=== PATIENT | female | born 1950 | race Caucasian/White ===

== ENCOUNTER 2016-08-09 09:42 | Outpatient (CLI) | payer MEDICARE, BC | END 2016-08-09 09:43 | disposition home or self-care (01) | DX: C82.60 Cutaneous follicle center lymphoma, unspecified site (principal); E78.2 Mixed hyperlipidemia; Z79.899 Other long term (current) drug therapy ==

== ENCOUNTER 2016-08-16 10:56 | Outpatient (CLI) | payer MEDICARE, BC | END 2016-08-16 10:57 | disposition home or self-care (01) | DX: Z12.31 Encounter for screening mammogram for malignant neoplasm of breast (principal) ==

== ENCOUNTER 2016-09-19 15:17 | Outpatient (CLI) | payer MEDICARE, BC ==
--- NOTE | 2016-09-19 16:44 | XRAY Report ---
TWO VIEW CHEST: 09/19/2016 CLINICAL INDICATION: Dry cough for three weeks. FINDINGS: Frontal and lateral view of the chest demonstrate a normal cardiac silhouette. The lungs a re clear. No effusion or pneumothorax is evident. IMPRESSION: NORMAL CHEST. JOB #: [id number] EXT JOB #:
== END 2016-09-19 15:18 | disposition home or self-care (01) ==
LOC: DI 15:17
PROVIDERS: ATTEND Internal Medicine
DX: R05 Cough (principal)
CPT/HCPCS: 71020

== ENCOUNTER 2018-01-14 09:28 | Outpatient (CLI) | payer MEDICARE, BC ==
[2018-01-14 17:51] LABS: BASOPHILS % (AUTO) 1.3 %; EOSINOPHILS # (AUTO) 0.3 10^3/uL (0.0-0.7); EOSINOPHILS % (AUTO) 7.5 %; HGB - HEMOGLOBIN 13.5 g/dL (12.0-16.0); LYMPHOCYTES # (AUTO) 1.2 10^3/uL (1.5-3.5); LYMPHOCYTES % (AUTO) 32.2 %; MEAN CORPUSCULAR HEMOGLOBIN 32.8 pg (27.0-31.0); MEAN CORPUSCULAR HGB CONC 33.6 g/dL (32.0-36.0); MEAN CORPUSCULAR VOLUME 97.5 fL (81.0-99.0); MEAN PLATELET VOLUME 8.5 fL (7.9-10.8); MONOCYTES # (AUTO) 0.4 10^3/uL (0.0-1.0); MONOCYTES % (AUTO) 10.2 %; NEUTROPHILS # (AUTO) 1.8 10^3/uL (1.5-6.6); NEUTROPHILS % (AUTO) 48.8 %; PLT - PLATELET COUNT 236 10^3/uL (130-450); RED BLOOD COUNT 4.11 10^6/uL (4.20-5.40); RED CELL DISTRIBUTION WIDTH 12.5 % (12.0-15.0); WHITE BLOOD COUNT 3.7 x10^3/uL (4.8-10.8)
[2018-01-14 18:03] LABS: ALBUMIN 3.7 g/dL (3.2-5.5); ALBUMIN/GLOBULIN RATIO 1.3 (1.0-2.2); ALKALINE PHOSPHATASE 80 IU/L (42-121); ALT ALANINE AMINOTRANSFERASE 14 IU/L (10-60); AST ASPARTATE AMINOTRANSFERASE 22 IU/L (10-42); BILIRUBIN,TOTAL 0.6 mg/dL (0.2-1.0); BUN - BLOOD UREA NITROGEN 19 mg/dL (6-20); CALCIUM 8.7 mg/dL (8.5-10.3); CARBON DIOXIDE - CO2 32 mmol/L (21-32); CHLORIDE 102 mmol/L (101-111); CHOL/HDL RATIO 3.7 (<4.4); CHOLESTEROL 181 mg/dL; CREATININE 0.6 mg/dL (0.4-1.0); GFR - MDRD 99 (>89); GLUCOSE 85 mg/dL (70-100); HDL CHOLESTEROL 49 mg/dL; LDL CHOLESTEROL,CALCULATED 123 mg/dL; LDL/HDL RATIO 2.5 (<4.4); SODIUM 140 mmol/L (135-145); TOTAL PROTEIN 6.5 g/dL (6.7-8.2); VLDL CHOLESTEROL 9 mg/dL
== END 2018-01-14 09:29 | disposition home or self-care (01) ==
LOC: LAB.F 09:28
PROVIDERS: ATTEND Internal Medicine
DX: M85.80 Other specified disorders of bone density and structure, unspecified site (principal); E78.5 Hyperlipidemia, unspecified; M19.049 Primary osteoarthritis, unspecified hand
CPT/HCPCS: 36415; 80053; 80061; 83721; 85025

== ENCOUNTER 2018-02-12 10:44 | Outpatient (CLI) | payer MEDICARE, BC ==
--- NOTE | 2018-02-13 09:30 | DEXA Report ---
Reason: POSTMENOPAUSAL Procedure Date: 02/12/2018 Accession Number: [id number] / [id number] Procedure: DEX - Dexa Spine and/or Hip CPT Code: FULL RESULT: EXAM: Dexa Spine and/or Hip DATE: 02/12/2018 11:28 AM CLINICAL HISTORY: POSTMENOPAUSAL TECHNIQUE: Dual energy x-ray absorptiometry (DXA) was performed on a [employer] System. Regions measured are the AP Spine, femoral neck, and if needed forearm. COMPARISON: None. In accordance with the International Society for Clinical Densitometry (ISCD) guidelines, data from previous exams may be reanalyzed using current recommendations and techniques. This is done to allow a more accurate basis for comparison with the current study. FINDINGS: The data for the lumbar spine is as follows: BMD (g/cm/cm) T-SCORE Z-SCORE REGION L1 1.063 -0.6 1.3 L2 1.142 -0.5 1.4 L3 1.233 0.3 2.2 L4 1.269 0.6 2.5 TOTAL 1.186 0.1 1.9 NOTE: All evaluable vertebrae are used for classification The data for the hip is as follows: BMD (g/cm/cm) T-SCORE Z-SCORE REGION Neck 0.889 -1.1 0.7 TOTAL 0.819 -1.5 0.1 IMPRESSION: THE WHO CLASSIFICATION BASED ON THE INTERNATIONAL REFERENCE STANDARD IS OSTEOPENIA. THE FRACTURE RISK IS INCREASED. RECOMMENDATION: Patients with diagnosis of osteoporosis or osteopenia should have regular bone mineral density assessment. For those eligible for Medicare, routine testing is allowed once every 2 years. Testing frequency can be increased for patients who have rapidly progressing disease or for those who are receiving medical therapy to restore bone mass. COMMENT: World Health Organization (WHO) definitions for osteoporosis and osteopenia: NORMAL BMD: T-score at -1.0 or higher, fracture risk is low OSTEOPENIA BMD: T-score between -1.0 and -2.5, fracture risk is increased. OSTEOPOROSIS BMD: T-score at -2.5 or lower, fracture risk is high. National Osteoporosis Foundation recommends: 1. Obtain adequate dietary calcium (at least 1200 mg per day) and vitamin D (400-800 international units per day). 2. Participate, as appropriate, in regular weightbearing and muscle-strengthening exercise. 3. Avoid tobacco use and reduce alcohol and caffeine intake. 4. For more detailed information see the website at www.NOF.org.
== END 2018-02-12 10:45 | disposition home or self-care (01) ==
LOC: DI 10:44
PROVIDERS: ATTEND Internal Medicine
DX: M85.88 Other specified disorders of bone density and structure, other site (principal)
CPT/HCPCS: 77080

== ENCOUNTER 2018-03-16 23:23 | Emergency (ER) | payer MEDICARE, BC ==
--- NOTE | 2018-03-16 23:52 | ED Physician Documentation ---
PD HPI CHEST PAIN - Stated complaint Stated Complaint: CP - Chief complaint Chief Complaint: Cardiac - History obtained from History obtained from: Patient - History of Present Illness Timing - onset: Today (mid/late morning) Timing - onset during: Light activity Timing - details: Intermittant Pain level now: 0 Quality: Pain Location: Left chest Radiation: Other (no radiation) Improved by: Nothing Worsened by: Other (no exacerbating factors) Associated symptoms: No: Shortness of air, Diaphoresis, Nausea, Vomiting, Feeling faint / dizzy, Palpitations Similar symptoms before: Has not had sx before Recently seen: Not recently seen - Additional information Additional information: c/o episodic left chest pain since mid/late morning today, no apparent inciting/exacerbating/ameliorating factors. Currently asymptomatic. Review of Systems Constitutional: denies: Fever, Chills, Sweats Cardiac: reports: Chest pain / pressure. denies: Palpitations, Pedal edema, Calf pain Respiratory: reports: Reviewed and negative GI: reports: Reviewed and negative Musculoskeletal: denies: Extremity swelling PD PAST MEDICAL HISTORY - Past Medical History Past Medical History: Yes Cardiovascular: None Respiratory: None Neuro: None Endocrine/Autoimmune: None GI: None LEATHER SPRAYER: None : None HEENT: Other Psych: None Musculoskeletal: None Derm: Other Other Past Medical History: SKIN CANCER TO BRIDGE OF NOSE/RADIATION.... DRY EYES SYNDROME... - Past Surgical History Past Surgical History: Yes Ortho: Rotator cuff repair, Other /LEATHER SPRAYER: Hysterectomy - Allergies Allergies/Adverse Reactions: Allergies Allergy/AdvReac Type Severity Reaction Status Date / Time nitrofurantoin AdvReac Unknown Verified 03/16/18 23:39 [From Macrobid] Penicillins AdvReac Unknown Verified 03/16/18 23:39 Sulfa (Sulfonamide AdvReac Unknown Verified 03/16/18 23:39 Antibiotics) - Social History Does the pt smoke?: No Smoking Status: Never smoker Does the pt drink ETOH?: No Does the pt have substance abuse?: No - Immunizations Immunizations are current?: Yes - POLST Patient has POLST: No PD ED PE NORMAL - Vitals Vital signs reviewed: Yes - General General: Alert and oriented X 3, No acute distress, Well developed/nourished - HEENT HEENT: Moist mucous membranes - Cardiac Cardiac: RRR, No murmur, No gallop, No rub - Respiratory Respiratory: No respiratory distress, Clear bilaterally - Abdomen Abdomen: Soft, Non tender - Derm Derm: Normal color, Warm and dry - Extremities Extremities: No edema Results - Vitals Vitals: Vital Signs - 24 hr 03/16/18 03/16/18 03/17/18 23:31 23:36 00:33 Temperature 36.5 C Heart Rate 65 69 Respiratory 17 15 Rate Blood Pressure 161/99 H 142/74 H Blood Pressure 165/80 H [Left] O2 Saturation 99 99 03/17/18 03/17/18 03/17/18 00:45 00:48 01:00 Temperature Heart Rate 50 L Respiratory 16 17 16 Rate Blood Pressure 145/88 H Blood Pressure [Left] O2 Saturation 99 03/17/18 02:16 Temperature Heart Rate 52 L Respiratory 16 Rate Blood Pressure Blood Pressure [Left] O2 Saturation 99 Oxygen O2 Source Room air - EKG (time done) No standard instances Rate: Rate (enter#) (54) Rhythm: NSR [place]: Normal Intervals: Normal [place] QRS: Normal Ischemia: Normal ST segments - Labs Labs: Laboratory Tests 03/16/18 03/16/18 03/16/18 23:36 23:36 23:36 WBC 4.7 L RBC 4.02 L Hgb 13.3 Hct 38.9 MCV 96.8 MCH 33.0 H MCHC 34.1 RDW 12.4 Plt Count 215 MPV 7.5 L Neut # (Auto) 2.0 Lymph # (Auto) 1.6 Cottle # (Auto) 0.6 Eos # (Auto) 0.4 Baso # (Auto) 0.1 Absolute Nucleated RBC 0.00 Nucleated RBC % 0.0 Sodium 140 Potassium 3.5 Chloride 105 Carbon Dioxide 30 Anion Gap 5.0 L BUN 17 Creatinine 0.6 Estimated GFR (MDRD) 99 Glucose 98 Calcium 8.7 Total Bilirubin < 0.2 L AST 22 ALT 14 Alkaline Phosphatase 96 Troponin I < 0.04 Total Protein 6.7 Albumin 3.6 Globulin 3.1 Albumin/Globulin Ratio 1.2 Lipase 33 - Rads (name of study) chest xray Radiology: Prelim report reviewed, See rad report PD MEDICAL DECISION MAKING - ED course Complexity details: reviewed results, re-evaluated patient, considered differential, d/w patient Departure - Departure Disposition: 01 Home, Self Care Clinical Impression: Chest pain Qualifiers: Chest pain type: unspecified Qualified Code(s): R07.9 - Chest pain, unspecified Condition: Good Instructions: ED Chest Pain Atypical Unkn Cause, ED Hypertension Poss Follow-Up: Nick Rodríguez MD [Provider Admit Priv/Credential] - Within 1 week
[2018-03-16 23:54] LABS: BASOPHILS # (AUTO) 0.1 10^3/uL (0.0-0.1); BASOPHILS % (AUTO) 1.1 %; EOSINOPHILS # (AUTO) 0.4 10^3/uL (0.0-0.7); EOSINOPHILS % (AUTO) 9.5 %; HGB - HEMOGLOBIN 13.3 g/dL (12.0-16.0); LYMPHOCYTES # (AUTO) 1.6 10^3/uL (1.5-3.5); LYMPHOCYTES % (AUTO) 34.5 %; MEAN CORPUSCULAR HGB CONC 34.1 g/dL (32.0-36.0); MEAN CORPUSCULAR VOLUME 96.8 fL (81.0-99.0); MEAN PLATELET VOLUME 7.5 fL (7.9-10.8); MONOCYTES # (AUTO) 0.6 10^3/uL (0.0-1.0); NEUTROPHILS % (AUTO) 41.9 %; PLT - PLATELET COUNT 215 10^3/uL (130-450); RED BLOOD COUNT 4.02 10^6/uL (4.20-5.40); RED CELL DISTRIBUTION WIDTH 12.4 % (12.0-15.0); WHITE BLOOD COUNT 4.7 x10^3/uL (4.8-10.8)
[2018-03-17 00:28] LABS: ALBUMIN 3.6 g/dL (3.2-5.5); ALBUMIN/GLOBULIN RATIO 1.2 (1.0-2.2); ALKALINE PHOSPHATASE 96 IU/L (42-121); ALT ALANINE AMINOTRANSFERASE 14 IU/L (10-60); AST ASPARTATE AMINOTRANSFERASE 22 IU/L (10-42); BILIRUBIN,TOTAL < 0.2 mg/dL (0.2-1.0); BUN - BLOOD UREA NITROGEN 17 mg/dL (6-20); CALCIUM 8.7 mg/dL (8.5-10.3); CARBON DIOXIDE - CO2 30 mmol/L (21-32); CHLORIDE 105 mmol/L (101-111); CREATININE 0.6 mg/dL (0.4-1.0); GFR - MDRD 99 (>89); GLUCOSE 98 mg/dL (70-100); LIPASE 33 U/L (22-51); SODIUM 140 mmol/L (135-145); TOTAL PROTEIN 6.7 g/dL (6.7-8.2)
--- NOTE | 2018-03-17 00:57 | XRAY Report ---
Reason: chest pain Procedure Date: 03/17/2018 Accession Number: [id number] / [id number] Procedure: XR - Chest 2 View X-Ray CPT Code: 37986 FULL RESULT: EXAM: CHEST RADIOGRAPHY EXAM DATE: 03/17/2018 12:51 AM. CLINICAL HISTORY: Chest pain. COMPARISON: CHEST 2 VIEW PA/LAT 09/19/2016 3:26 PM. TECHNIQUE: 2 views. FINDINGS: Lungs/Pleura: Trace left effusion. No focal infiltrate or pneumothorax. Mediastinum: Heart and mediastinal contours are unremarkable. Other: None. IMPRESSION: Trace left pleural effusion. RADIA
[2018-03-17 01:01] VITALS: BP 145/88
== END 2018-03-17 02:20 | disposition home or self-care (01) ==
LOC: ED 23:23
DX: R07.9 Chest pain, unspecified (principal); Z85.828 Personal history of other malignant neoplasm of skin; Z92.3 Personal history of irradiation; R94.31 Abnormal electrocardiogram [ECG] [EKG]
CPT/HCPCS: 36415; 71046; 80053; 83690; 84484; 85025; 93005; 99283; 99284

== ENCOUNTER 2019-02-01 18:41 | Day surgery (SDC) | payer MEDICARE, BC ==
--- NOTE | 2019-02-01 19:46 | XRAY Report ---
Reason: injury from horse Procedure Date: 02/01/2019 Accession Number: [id number] / [id number] Procedure: XR - Ankle 3 View RT CPT Code: FULL RESULT: EXAM: RIGHT ANKLE RADIOGRAPHY EXAM DATE: 02/01/2019 07:22 PM. CLINICAL HISTORY: Injury from horse. COMPARISON: None. TECHNIQUE: 3 views. FINDINGS: Bones: An acute oblique displaced fracture of right distal fibular diaphysis. Moderate overlying soft tissue swelling with subcutaneous lucencies/air. Joints: Normal. No effusion. No subluxations. The ankle mortise is normally aligned. Soft Tissues: Normal. No soft tissue swelling. IMPRESSION: An acute oblique displaced fracture of right distal fibular diaphysis with moderate overlying soft tissue swelling. Subcutaneous air is likely introduced from external source secondary to injury. RADIA
--- NOTE | 2019-02-01 20:41 | ED Physician Documentation ---
History of Present Illness - Stated complaint Stated Complaint: RT ANKLE INJURY - Chief complaint Chief Complaint: Ext Problem - Additonal information Additional information: This is a 68-year-old female who denies past medical history presents with right ankle pain. Patient was riding a horse today, and another horse kicked up his legs and impacted her right ankle. She slid off the horse to the ground, but did not impact anything else. She had immediate pain and swelling over the ankle. She was wearing heavy riding boots, when these removed she noticed a wound which has continued to ooze blood. She denies any weakness or numbness in the leg. Review of Systems Constitutional: denies: Fever Respiratory: denies: Dyspnea Skin: reports: Laceration (s) Musculoskeletal: reports: Extremity pain PD PAST MEDICAL HISTORY - Past Medical History Cardiovascular: None Respiratory: None Neuro: None Endocrine/Autoimmune: None GI: None SPEED BELT SANDER: None : None HEENT: Other Psych: None Musculoskeletal: None Derm: Other - Past Surgical History Past Surgical History: Yes Ortho: Rotator cuff repair, Other /SPEED BELT SANDER: Hysterectomy - Allergies Allergies/Adverse Reactions: Allergies Allergy/AdvReac Type Severity Reaction Status Date / Time nitrofurantoin AdvReac Unknown Verified 03/16/18 23:39 [From Macrobid] Penicillins AdvReac Unknown Verified 03/16/18 23:39 Sulfa (Sulfonamide AdvReac Unknown Verified 03/16/18 23:39 Antibiotics) - Social History Does the pt smoke?: No Smoking Status: Never smoker Does the pt drink ETOH?: No Does the pt have substance abuse?: No - Immunizations Immunizations are current?: Yes - POLST Patient has POLST: No PD ED PE NORMAL - Vitals Vital signs reviewed: Yes - General General: Alert and oriented X 3, No acute distress - HEENT HEENT: Atraumatic - Neck Neck: Supple, no meningeal sign - Cardiac Cardiac: RRR, No murmur - Respiratory Respiratory: Clear bilaterally - Abdomen Abdomen: Soft, Non distended - Extremities Extremities: Other (Edema, ecchymosis, and tenderness over the right lateral malleolus. There is a 1.5 cm elliptical wound with oozing which is located over the area of maximal tenderness. There is no visible bone fragment. Distal DP pulse is intact, capillary refill is brisk, patient is able to wiggle all of her toes, and sensation light touch is intact. There is no proximal tibial or fibular tenderness. No forefoot tenderness.) - Neuro Neuro: Alert and oriented X 3 - Psych Psych: Normal mood, Normal affect Results - Vitals Vitals: Vital Signs - 24 hr 02/01/19 02/01/19 02/01/19 18:50 20:30 22:58 Temperature 36.9 C 36.8 C Heart Rate 70 62 63 Respiratory 16 14 16 Rate Blood Pressure 145/69 H 172/80 H 114/66 O2 Saturation 100 99 98 02/01/19 02/01/19 02/01/19 23:04 23:13 23:16 Temperature 36.4 C L 36.4 C L 36.4 C L Heart Rate 61 66 77 Respiratory 16 14 14 Rate Blood Pressure 119/67 124/72 124/72 O2 Saturation 99 97 96 02/01/19 02/01/19 23:20 23:24 Temperature 36.4 C L 36.4 C L Heart Rate 70 67 Respiratory 16 16 Rate Blood Pressure 127/74 128/75 O2 Saturation 98 97 Oxygen O2 Source Room air - Labs Labs: Laboratory Tests 02/01/19 02/01/19 02/01/19 21:48 21:48 21:48 WBC 7.0 RBC 3.88 L Hgb 12.5 Hct 37.7 MCV 97.2 MCH 32.2 H MCHC 33.2 RDW 11.9 L Plt Count 222 MPV 9.4 Neut # (Auto) 5.0 Lymph # (Auto) 1.3 L Gem # (Auto) 0.5 Eos # (Auto) 0.2 Baso # (Auto) 0.0 Absolute Nucleated RBC 0.00 Nucleated RBC % 0.0 PT 12.2 INR 1.1 Sodium 141 Potassium 3.7 Chloride 106 Carbon Dioxide 27 Anion Gap 8.0 BUN 13 Creatinine 0.5 Estimated GFR (MDRD) 122 Glucose 98 Calcium 9.0 Total Bilirubin 0.8 AST 23 ALT 15 Alkaline Phosphatase 77 Total Protein 6.9 Albumin 3.8 Globulin 3.1 Albumin/Globulin Ratio 1.2 Lipase 33 - Rads (name of study) XR ankle Radiology: Other (Acute oblique displaced fracture of the right distal fibular diaphysis, subcutaneous air likely introduced from external source secondary to injury.) PD MEDICAL DECISION MAKING - ED course Complexity details: considered differential (Fracture, open fracture, laceration, dislocation.) ED course: Patient presents with right ankle pain and swelling, x-ray reveals a Fracture of the distal fibula, there is also subcutaneous air. On exam she has a laceration which is concerning for a Poke hole laceration from her fracture. Given the extent of subcutaneous air that is tracking up the leg on x-ray, I am highly concerned this is an open fracture. IV was inserted, labs are drawn, and patient was given 2 g of Ancef. I consulted Dr. Gasca of orthopedics, who plans to wash patient out of the OR, splint her, and she will likely be able to go home later tonight after surgery. I discussed the plan with the patient who is in agreement. Her limb is neurovascularly intact. Departure - Departure Disposition: ED Transfer to [facility] Clinical Impression: Open fracture Condition: Good Discharge Date/Time: 02/01/19 22:23
[2019-02-01] MEDS ORDERED: ceFAZolin 2 GM in SODIUM CHLORIDE 0.9% MINIBAG 100 ML IV STA (21:46)
[2019-02-01] MEDS ORDERED: ACETAMINOPHEN 1,000 MG/100 ML 100 ML IV ONE ×2 (21:51→22:25)
[2019-02-01 22:02] LABS: BASOPHILS % (AUTO) 0.6 %; EOSINOPHILS # (AUTO) 0.2 10^3/uL (0.0-0.7); EOSINOPHILS % (AUTO) 2.1 %; HGB - HEMOGLOBIN 12.5 g/dL (12.0-16.0); LYMPHOCYTES # (AUTO) 1.3 10^3/uL (1.5-3.5); LYMPHOCYTES % (AUTO) 17.8 %; MEAN CORPUSCULAR HEMOGLOBIN 32.2 pg (27.0-31.0); MEAN CORPUSCULAR HGB CONC 33.2 g/dL (32.0-36.0); MEAN CORPUSCULAR VOLUME 97.2 fL (81.0-99.0); MEAN PLATELET VOLUME 9.4 fL (7.9-10.8); MONOCYTES # (AUTO) 0.5 10^3/uL (0.0-1.0); MONOCYTES % (AUTO) 7.7 %; NEUTROPHILS % (AUTO) 71.5 %; PLT - PLATELET COUNT 222 10^3/uL (130-450); RED BLOOD COUNT 3.88 10^6/uL (4.20-5.40); RED CELL DISTRIBUTION WIDTH 11.9 % (12.0-15.0)
[2019-02-01 22:13] LABS: INR 1.1 (0.8-1.2); PT - PROTHROMBIN TIME 12.2 secs (9.9-12.6)
[2019-02-01 22:14] LABS: ALBUMIN 3.8 g/dL (3.2-5.5); ALBUMIN/GLOBULIN RATIO 1.2 (1.0-2.2); BILIRUBIN,TOTAL 0.8 mg/dL (0.2-1.0); CREATININE 0.5 mg/dL (0.4-1.0); TOTAL PROTEIN 6.9 g/dL (6.7-8.2)
[2019-02-01] MEDS ORDERED: LACTATED RINGERS 1,000 ML IV ONE (22:14)
[2019-02-01] MEDS ORDERED: BUPIVACAINE 0.5% PF 30 ML VIAL ONE (22:17)
[2019-02-01] MEDS ORDERED: ONDANSETRON 4 MG/2 ML VIAL IVP ONE (22:25)
[2019-02-01] MEDS ORDERED: PROPOFOL 200 MG/20 ML VIAL IVP ONE (22:25)
[2019-02-01] MEDS ORDERED: DEXAMETHASONE 4 MG/ML VIAL IVP ONE (22:25)
[2019-02-01] MEDS ORDERED: fentaNYL 100 MCG/2 ML VIAL IVP ONE (22:25)
[2019-02-01] MEDS ORDERED: MIDAZOLAM 2 MG/2 ML VIAL IVP ONE (22:25)
[2019-02-01] MEDS ORDERED: LIDOCAINE-MPF 2% 5 ML VIAL IM ONE (22:25)
[2019-02-01] MEDS ORDERED: KETOROLAC 30 MG/ML VIAL IVP ONE (22:25)
--- NOTE | 2019-02-01 22:31 | ANESTHESIA ---
Pre-Anesthesia VS, & Labs - Diagnosis Open fx R distal fibula - Procedure I&D R open distal fibula fx Vital Signs: Temp Pulse Resp BP Pulse Ox 36.9 C 62 14 172/80 H 99 02/01/19 18:50 02/01/19 20:30 02/01/19 20:30 02/01/19 20:30 02/01/19 20:30 Height 5 ft 7 in Weight (kg) 63.503 kg Body Mass Index 21.9 - NPO >8 hours - Is Patient ?: No - Lab Results Current Lab Results: Laboratory Tests 02/01/19 21:48: Sodium 141, Potassium 3.7, Chloride 106, Carbon Dioxide 27, Anion Gap 8.0, BUN 13, Creatinine 0.5, Estimated GFR (MDRD) 122, Glucose 98, Calcium 9.0, Total Bilirubin 0.8, AST 23, ALT 15, Alkaline Phosphatase 77, Total Protein 6.9, Albumin 3.8, Globulin 3.1, Albumin/Globulin Ratio 1.2, Lipase 33 02/01/19 21:48: PT 12.2, INR 1.1 02/01/19 21:48: WBC 7.0, RBC 3.88 L, Hgb 12.5, Hct 37.7, MCV 97.2, MCH 32.2 H, MCHC 33.2, RDW 11.9 L, Plt Count 222, MPV 9.4, Neut # (Auto) 5.0, Lymph # (Auto) 1.3 L, [place]on # (Auto) 0.5, Eos # (Auto) 0.2, Baso # (Auto) 0.0, Absolute Nucleated RBC 0.00, Nucleated RBC % 0.0 Lab results reviewed: Yes Fish Bones: 02/01/19 21:48 02/01/19 21:48 Home Medications and Allergies Allergies/Adverse Reactions: Allergies Allergy/AdvReac Type Severity Reaction Status Date / Time nitrofurantoin AdvReac Unknown Verified 03/16/18 23:39 [From Macrobid] Penicillins AdvReac Unknown Verified 03/16/18 23:39 Sulfa (Sulfonamide AdvReac Unknown Verified 03/16/18 23:39 Antibiotics) Anes History & Medical History - Anesthetic History Anesthesia Complications: reports: No previous complications Family history of Anesthesia Complications: Denies Family history of Malignant Hyperthermia: Denies - Medical History Cardiovascular: reports: None Pulmonary: reports: None Gastrointestinal: reports: None Urinary: reports: None Neuro: reports: None Musculoskeletal: reports: None Endocrine/Autoimmune: reports: None Blood Disorders: reports: None Skin: reports: Other Smoking Status: Never smoker - Surgical History Gynecologic: Hysterectomy Orthopedic: Rotator cuff repair, Other Exam General: Alert, Oriented x3, Cooperative Dental: WNL Mouth Openin Fingerbreadth Neck Mobility: Normal Mallampati classification: II Thyromental Distance: 4-6 cm Respiratory: Lungs clear, Normal breath sounds Cardiovascular: Regular rate Neurological: Normal speech Mental/Cognitive Status: Alert/Oriented X3 Cognitive Status: Within normal limits Plan Anesthesia Type: General Consent for Procedure(s) Verified and Reviewed: Yes Code Status: Attempt Resuscitation ASA classification: 2-Mild systemic disease Is this case an emergency?: Yes
[2019-02-01] MEDS ORDERED: BUPIVACAINE 0.5% PF 30 ML VIAL INFIL ONE (22:35)
[2019-02-01] MEDS ORDERED: ONDANSETRON 4 MG/2 ML VIAL IVP PRN (22:56)
[2019-02-01] MEDS ORDERED: oxyCODONE 5 MG TABLET PO PRN (22:56)
[2019-02-01] MEDS ORDERED: LACTATED RINGERS 1,000 ML IV SCH (23:00)
--- NOTE | 2019-02-01 23:01 | OPERATIVE REPORT ---
Operative Report - General Procedure Date: 02/01/19 Planned Procedure: Incision and irrigation of open right distal fuibula fracture Pre-Op Diagnosis: Open grade 1 right distal fibula fracture Procedure Performed: Incision and irrigation of right distal fibula fracture Post Op Diagnosis: Same - Procedure Note Primary Surgeon: Tim Gasca MD Anesthesia Provider: Taqueria Capps CRNA Anesthesia Technique: General LMA IV Fluids (mL): 600 Estimated Blood Loss (mL): 25 Complications: None
[2019-02-02 00:59] VITALS: BP 135/75
--- NOTE | 2019-02-02 03:19 | HISTORY & PHYSICAL EXAMINATION ---
DATE OF SERVICE: 02/01/2019 Physician: Bartolo Gasca MD REFERRING PHYSICIAN: Branden [TIME: 00:26]MD of the Emergency Room Department. 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 The [place] was wearing riding boots at the time this happened. Was able to continue riding. When she got home and took her boot off, she noted a bleeding wound over the lateral aspect of her distal fibular region. Also noted pain in this region. No distal weakness or numbness noted. No loss of consciou sness, nausea, vomiting or other problems. The patient sought medical attention at the Emergency [facility] here at [facility]. X-rays showed an essentially nondisplaced distal fibular fractur e. Ankle mortise was intact. On exam, she had a small 3-4 mm puncture-type wound overlying her fibu lar fracture. No exposed bone noted. PAST MEDICAL HISTORY: Chronic illnesses: Patient denies any chronic illnesses. ALLERGIES: SHE HAS PENICILLIN, SULFA AND NITROFURANTOIN FOR HER ALLERGIES. REVIEW OF SYSTEMS: Noncontributory. PHYSICAL EXAMINATION: GENERAL: Revealed a healthy-appearing, elderly female lying on the stretcher in minimal discomfort. VITAL SIGNS: BP 114/66, pulse 63, respirations 16, afebrile. HEENT: Normocephalic. PERRLA. EOMs full. Vision and hearing grossly intact and symmetrical. NECK: Supple without nodes. CHEST: Clear to auscultation. CARDIOVASCULAR: Regular rate and rhythm. S1 and S2 heard without murmurs, rubs or gallops. ABDOMEN: Soft, nontender, active bowel sounds. EXTREMITIES: Within normal limits except for the right ankle area. The patient had a small puncture -type wound that measured about 3 mm in diameter. There was some bloody discharge coming from this w ound. No fat globules were seen, however. The patient neurovascularly is intact in her foot and toe s. Able to move her toes adequately with minimal discomfort. Sensation intact throughout. Good cap illary filling noted. NEUROLOGIC: The patient is alert and oriented x3. Sensory and motor exam grossly intact and symmetr ical. X-RAYS: Show an oblique-type fracture of her distal fibula. Minimally angulated, minimally displaced . Ankle mortise was intact. ASSESSMENT: A grade 1 open right distal fibula fracture. PLAN: The patient will be taken to the operating room for a formal incision and debridement of her w ound and irrigation of her open fracture. The risks and benefits of surgery were explained to the denisse major and her . These include anesthesia risks, infection, blood loss, nerve damage, blood mounika ts, malunion, nonunion, possible surgeries in the future. The patient's questions were answered. Th ey wished to proceed with surgery as indicated. We did talk to them about the pros and cons of also plating her fracture at that time and we elected not to do this, in view of the more extensile exposu re, soft tissue stripping, etc. The leg was marked. Consent signed. This will be done as an outpati ent this evening. TD: 02/01/2019 23:09
--- NOTE | 2019-02-02 03:20 | OPERATIVE REPORT ---
DATE OF SERVICE: 02/01/2019 Physician: Bartolo Gasca MD PREOPERATIVE DIAGNOSIS: Grade 1 open right distal fibula fracture. POSTOPERATIVE DIAGNOSIS: Grade 1 open right distal fibula fracture. PROCEDURE PERFORMED: Incision and debridement and irrigation of open right distal fibula fracture. SURGEON: Bartolo Gasca MD ANESTHESIA: General. DESCRIPTION OF PROCEDURE: The patient was taken to the operating room on 02/01/2019, where she was p laced under general anesthetic in the supine position. We then placed a rolled towel underneath her right buttock to help with the positioning of her fracture. She was noted to have a 3-4 mm small pun cture wound down in the distal posterolateral aspect of her calf overlying her distal fibular fractur e area. We prepped and draped the ankle free in the usual fashion for our procedure. We extended th e small puncture wound both proximally and distally for a total of about 1.5 cm incision. We debride d the skin edges of the small puncture wound and noted that the skin in this region was somewhat cont used. We did remove the majority of this contused tissue and were left with viable-appearing wound e dges. At this point, we could probe with our finger and we noted that this did indeed communicate wi th the distal fibular fracture. We then irrigated the wound out copiously with a total of 2000 mL of sterile saline. At the end of the irrigation and debridement, we then closed the wound loosely usin g simple interrupted stitches and horizontal mattress stitches of 3-0 nylon suture. We then dressed the wound with Xeroform gauze, 4 x 4's, sterile Webril and a short-leg posterior splint with stirrups was applied to the extremity. The patient was then taken to recovery room in satisfactory condition . ESTIMATED BLOOD LOSS: 25 mL. REPLACEMENT: 500 mL crystalloid. INTRAOPERATIVE COMPLICATIONS: None. TD: 02/01/2019 23:12
== END 2019-02-02 00:45 | disposition home or self-care (01) ==
LOC: ED 18:41 → SDS 22:24 → OBS 23:08 → SDS 02-02 00:45
PROVIDERS: ATTEND Orthopaedic Surgery
PROC: 0HBKXZZ Excision of Right Lower Leg Skin, External Approach (ICD-10-PCS; principal; 2019-02-01 22:30)
DX: S82.831B Other fracture of upper and lower end of right fibula, initial encounter for open fracture type I or II (principal); V80.918A Animal-rider injured in other transport accident, initial encounter; Y93.52 Activity, horseback riding; Z88.1 Allergy status to other antibiotic agents; Z88.0 Allergy status to penicillin; Z88.2 Allergy status to sulfonamides
CPT/HCPCS: 11010; 36415; 73610; 80053; 83690; 85025; 85610; 96374; 99284; 99285; J0131; J7120

== ENCOUNTER 2019-03-11 10:02 | Outpatient (CLI) | payer MEDICARE, BC ==
[2019-03-11 17:22] LABS: BASOPHILS # (AUTO) 0.1 10^3/uL (0.0-0.1); BASOPHILS % (AUTO) 1.2 %; EOSINOPHILS # (AUTO) 0.3 10^3/uL (0.0-0.7); EOSINOPHILS % (AUTO) 7.5 %; LYMPHOCYTES # (AUTO) 1.1 10^3/uL (1.5-3.5); LYMPHOCYTES % (AUTO) 27.5 %; MEAN CORPUSCULAR HEMOGLOBIN 31.3 pg (27.0-31.0); MEAN CORPUSCULAR HGB CONC 31.4 g/dL (32.0-36.0); MEAN CORPUSCULAR VOLUME 99.8 fL (81.0-99.0); MEAN PLATELET VOLUME 10.8 fL (7.9-10.8); MONOCYTES # (AUTO) 0.5 10^3/uL (0.0-1.0); MONOCYTES % (AUTO) 10.8 %; NEUTROPHILS # (AUTO) 2.2 10^3/uL (1.5-6.6); NEUTROPHILS % (AUTO) 52.5 %; PLT - PLATELET COUNT 264 10^3/uL (130-450); RED BLOOD COUNT 4.15 10^6/uL (4.20-5.40); WHITE BLOOD COUNT 4.2 x10^3/uL (4.8-10.8)
[2019-03-11 18:12] LABS: ALBUMIN 3.8 g/dL (3.2-5.5); ALBUMIN/GLOBULIN RATIO 1.3 (1.0-2.2); BILIRUBIN,TOTAL 0.6 mg/dL (0.2-1.0); CALCIUM 9.1 mg/dL (8.5-10.3); CREATININE 0.5 mg/dL (0.4-1.0); TOTAL PROTEIN 6.8 g/dL (6.7-8.2)
[2019-03-11 18:16] LABS: THYROID STIMULATING HORMONE 3.68 uIU/mL (0.34-5.60)
[2019-03-11 18:20] LABS: FREE T4 (FREE THYROXINE) 0.84 ng/dL (0.58-1.64)
== END 2019-03-11 10:03 | disposition home or self-care (01) ==
LOC: LAB.S 10:02
PROVIDERS: ATTEND Family Medicine
DX: L90.0 Lichen sclerosus et atrophicus (principal); M85.80 Other specified disorders of bone density and structure, unspecified site; E78.5 Hyperlipidemia, unspecified; M19.041 Primary osteoarthritis, right hand; M19.042 Primary osteoarthritis, left hand; R63.4 Abnormal weight loss; I73.00 Raynaud's syndrome without gangrene
CPT/HCPCS: 36415; 80053; 84439; 84443; 84481; 85025

== ENCOUNTER 2019-11-09 13:34 | Emergency (ER) | payer MEDICARE, BC ==
[2019-11-09 13:56] LABS: BASOPHILS # (AUTO) 0.1 10^3/uL (0.0-0.1); BASOPHILS % (AUTO) 0.8 %; EOSINOPHILS # (AUTO) 0.4 10^3/uL (0.0-0.7); EOSINOPHILS % (AUTO) 4.6 %; HGB - HEMOGLOBIN 14.2 g/dL (12.0-16.0); LYMPHOCYTES # (AUTO) 1.6 10^3/uL (1.5-3.5); LYMPHOCYTES % (AUTO) 20.7 %; MEAN CORPUSCULAR HGB CONC 32.3 g/dL (32.0-36.0); MEAN CORPUSCULAR VOLUME 98.9 fL (81.0-99.0); MEAN PLATELET VOLUME 9.6 fL (7.9-10.8); MONOCYTES # (AUTO) 0.5 10^3/uL (0.0-1.0); MONOCYTES % (AUTO) 7.1 %; NEUTROPHILS # (AUTO) 5.1 10^3/uL (1.5-6.6); NEUTROPHILS % (AUTO) 66.5 %; PLT - PLATELET COUNT 221 10^3/uL (130-450); RED BLOOD COUNT 4.44 10^6/uL (4.20-5.40); RED CELL DISTRIBUTION WIDTH 12.4 % (12.0-15.0); WHITE BLOOD COUNT 7.6 x10^3/uL (4.8-10.8)
[2019-11-09 14:13] LABS: ALBUMIN 3.9 g/dL (3.2-5.5); ALBUMIN/GLOBULIN RATIO 1.3 (1.0-2.2); BILIRUBIN,TOTAL 0.5 mg/dL (0.2-1.0); CALCIUM 9.1 mg/dL (8.5-10.3); CREATININE 0.6 mg/dL (0.4-1.0)
--- NOTE | 2019-11-09 14:15 | ED Physician Documentation ---
History of Present Illness - Stated complaint Stated Complaint: CHEST DISCOMFORT/FLUTTERS - Chief complaint Chief Complaint: Cardiac - History obtained from History obtained from: Patient - History of Present Illness Timing: Prior to arrival, How many days ago (2) Pain level max: 0 Pain level now: 0 - Additonal information Additional information: 69-year-old female presents to the emergency department for evaluations of paroxysmal palpitations that she has noticed multiple times over the last 2 days. She reports that she can be at rest, simply working in the garden or reading a book where she will notice a flutter in her chest. It typically lasts 1 to 2 minutes before it dissipates. She denies that it is activity induced. She has no chest pain or dyspnea during these events. She is also had no syncope. She had similar about a year ago when she to be hypertensive at that time. She did follow-up in the emergency department but there were no worrisome findings and she was discharged home. Patient denies any history of coronary artery disease or stent placement. She is a non-smoker. Review of Systems Constitutional: denies: Fever, Chills Throat: denies: Dental pain / toothache Cardiac: reports: Palpitations. denies: Chest pain / pressure, Pedal edema, Calf pain Respiratory: denies: Dyspnea, Cough, Hemoptysis, Wheezing GI: denies: Abdominal Pain, Abdominal Swelling, Nausea, Vomiting : denies: Dysuria Musculoskeletal: denies: Neck pain, Back pain Neurologic: denies: Generalized weakness, Focal weakness, Syncope, Seizure, Confused, Altered mental status PD PAST MEDICAL HISTORY - Past Medical History Cardiovascular: None Respiratory: None Neuro: None Endocrine/Autoimmune: None GI: None OPERATING ROOM REGISTERED NURSE: None : None HEENT: Other Psych: None Musculoskeletal: None Derm: Other - Past Surgical History Past Surgical History: Yes Ortho: Rotator cuff repair, Other /OPERATING ROOM REGISTERED NURSE: Hysterectomy - Allergies Allergies/Adverse Reactions: Allergies Allergy/AdvReac Type Severity Reaction Status Date / Time nitrofurantoin AdvReac Unknown Verified 11/09/19 13:45 [From Macrobid] Penicillins AdvReac Unknown Verified 11/09/19 13:45 Sulfa (Sulfonamide AdvReac Unknown Verified 11/09/19 13:45 Antibiotics) - Social History Does the pt smoke?: No Smoking Status: Never smoker Does the pt drink ETOH?: No Does the pt have substance abuse?: No - Immunizations Immunizations are current?: Yes - POLST Patient has POLST: No PD ED PE NORMAL - General General: Alert and oriented X 3, No acute distress, Well developed/nourished - Neck Neck: Supple, no meningeal sign, No adenopathy - Cardiac Cardiac: RRR, No murmur, Strong equal pulses (2+ radial and pedal bilaterally) - Respiratory Respiratory: No respiratory distress - Abdomen Abdomen: Normal bowel sounds, Soft - Back Back: No CVA TTP - Derm Derm: Normal color Results - Vitals Vitals: Vital Signs - 24 hr 11/09/19 11/09/19 13:46 14:19 Temperature 36.8 C Heart Rate 76 60 Respiratory 16 13 Rate Blood Pressure 187/87 H 153/87 H O2 Saturation 97 98 Oxygen O2 Source Room air - EKG (time done) 1337 Rate: Rate (enter#) (58) Rhythm: NSR [place]: Anterior hemiblock Intervals: Normal [place] QRS: Normal Ischemia: Normal ST segments Compare to prior EKG: Unchanged from prior EKG - Labs Labs: Laboratory Tests 11/09/19 11/09/19 11/09/19 13:45 13:45 13:45 WBC 7.6 RBC 4.44 Hgb 14.2 Hct 43.9 MCV 98.9 MCH 32.0 H MCHC 32.3 RDW 12.4 Plt Count 221 MPV 9.6 Neut # (Auto) 5.1 Lymph # (Auto) 1.6 Prentiss # (Auto) 0.5 Eos # (Auto) 0.4 Baso # (Auto) 0.1 Absolute Nucleated RBC 0.00 Nucleated RBC % 0.0 Sodium 141 Potassium 3.9 Chloride 107 Carbon Dioxide 27 Anion Gap 7.0 BUN 22 H Creatinine 0.6 Estimated GFR (MDRD) 99 Glucose 117 H Calcium 9.1 Total Bilirubin 0.5 AST 18 ALT 11 Alkaline Phosphatase 86 Troponin I High Sens < 2.3 L Total Protein 7.0 Albumin 3.9 Globulin 3.1 Albumin/Globulin Ratio 1.3 Lipase 33 TSH 11/09/19 13:45 WBC RBC Hgb Hct MCV MCH MCHC RDW Plt Count MPV Neut # (Auto) Lymph # (Auto) Prentiss # (Auto) Eos # (Auto) Baso # (Auto) Absolute Nucleated RBC Nucleated RBC % Sodium Potassium Chloride Carbon Dioxide Anion Gap BUN Creatinine Estimated GFR (MDRD) Glucose Calcium Total Bilirubin AST ALT Alkaline Phosphatase Troponin I High Sens Total Protein Albumin Globulin Albumin/Globulin Ratio Lipase TSH 2.04 - Rads (name of study) CXR Radiology: Final report received (No acute cardiopulmonary process) PD MEDICAL DECISION MAKING - ED course Complexity details: reviewed old records, reviewed results, re-evaluated patient, d/w patient ED course: 69-year-old female presents to the emergency department for evaluation of palpitations that she has noted intermittently for the last 2 days. She has had no associated dyspnea, chest pain or fainting episodes. - Her EKG today is sinus. There has been no arrhythmia or ectopy noted. High- sensitivity troponin is negative. Chest x-ray is negative for cardiomegaly, or acute focal infiltrates. Electrolytes are also noted to be essentially normal. TSH is also normal. - I discussed this ED visit and her laboratory findings in detail. Patient is stable for discharge home. She will follow-up with her primary care doctor. Consideration as an outpatient for possible Holter monitor or referral to cardiology. Did discuss that she is to return to the emergency department for emergent or worsening symptoms to include chest pain, shortness of breath any fainting episodes or feelings of being lightheaded. Departure - Departure Disposition: 01 Home, Self Care Clinical Impression: Palpitations Condition: Stable Record reviewed to determine appropriate education?: Yes Instructions: ED Palpitations Follow-Up: Jose Paredes MD [Primary Care Provider] - Comments: Gabrielle I hope that you are feeling better soon. Your chest x-ray today is normal. Your EKG did not show any worrisome findings. While here in the emergency department you have not been seen to go into any abnormal cardiac rhythms. This ED visit should be followed up very closely with your primary care doctor. He may wish to order an outside Holter monitor or make a referral to a stone rougher. If in the future you develop worsening or more recurrent palpitations, feel faint or lightheaded, have any fainting episodes or develop chest pain or shortness of breath please return immediately to the emergency department
--- NOTE | 2019-11-09 14:21 | XRAY Report ---
PROCEDURE: Chest 1 View X-Ray INDICATIONS: Chest pain TECHNIQUE: One view of the chest was acquired. COMPARISON: 03/17/2018 and 02/15/2019 chest radiograph FINDINGS: Surgical changes and devices: None. Lungs and pleura: No pleural effusions or pneumothorax. Lungs are clear. Mediastinum: Mediastinal contours appear normal. Heart size is normal. Bones and chest wall: No suspicious bony lesions. Overlying soft tissues appear unremarkable. IMPRESSION: No acute cardiopulmonary process demonstrated radiographically. Reviewed by: Chago Horne MD on 11/09/2019 2:20 PM PDT Approved by: Chago Horne MD on 11/09/2019 2:20 PM PDT Station ID: [id number]
[2019-11-09 16:25] VITALS: BP 129/77
== END 2019-11-09 16:15 | disposition home or self-care (01) ==
LOC: ED 13:34
DX: R00.2 Palpitations (principal); I44.4 Left anterior fascicular block
CPT/HCPCS: 36415; 71045; 80053; 83690; 84443; 84484; 85025; 93005; 99284

== ENCOUNTER 2020-03-08 15:57 | Emergency (ER) | payer MEDICARE, BC ==
[2020-03-08] MEDS ORDERED: HYDROcod/ACETAM 5/325 MG TABLET PO STA (16:12)
--- NOTE | 2020-03-08 16:14 | ED Physician Documentation ---
PD HPI UPPER EXT INJURY - Stated complaint Stated Complaint: RT SHOULDER PX - Chief complaint Chief Complaint: Trauma Ext - History obtained from History obtained from: Patient (She got bucked off her horse landing directly on the right shoulder and has moderate to severe right clavicle and scapula pain. No other injuries. No loss of consciousness.) Review of Systems Ten Systems: 10 systems reviewed and negative Constitutional: reports: Reviewed and negative Eyes: reports: Reviewed and negative Ears: reports: Reviewed and negative Nose: reports: Reviewed and negative PD PAST MEDICAL HISTORY - Past Medical History Cardiovascular: None Respiratory: None Neuro: None Endocrine/Autoimmune: None GI: None ROAD CUTTER: None : None HEENT: Other Psych: None Musculoskeletal: None Derm: Other - Past Surgical History Past Surgical History: Yes Ortho: Rotator cuff repair, Other /ROAD CUTTER: Hysterectomy - Present Medications Home Medications: Ambulatory Orders Medication Instructions Recorded Confirmed HYDROcod/ACETAM 5/325 [Boligee 5/325] 1 - 2 tab PO Q6H PRN #15 tablet 03/08/20 - Allergies Allergies/Adverse Reactions: Allergies Allergy/AdvReac Type Severity Reaction Status Date / Time Cephalosporins Allergy Unknown Verified 11/10/19 15:28 cholestyramine Allergy Unknown Verified 11/10/19 15:28 [From Questran] clobetasol Allergy Unknown Verified 11/10/19 15:28 ezetimibe [From Zetia] Allergy Unknown Verified 11/10/19 15:28 Gadolinium-Containing Allergy Unknown Verified 11/10/19 15:28 Contrast Medi niacin Allergy Unknown Verified 11/10/19 15:28 NSAIDS (Non-Steroidal Allergy Unknown Verified 11/10/19 15:28 Anti-Inflamma sucrose [From Questran] Allergy Unknown Verified 11/10/19 15:28 nitrofurantoin AdvReac Unknown Verified 11/09/19 13:45 [From Macrobid] Penicillins AdvReac Unknown Verified 11/09/19 13:45 Sulfa (Sulfonamide AdvReac Unknown Verified 11/09/19 13:45 Antibiotics) - Social History Does the pt smoke?: No Smoking Status: Never smoker Does the pt drink ETOH?: No Does the pt have substance abuse?: No - Immunizations Immunizations are current?: Yes - POLST Patient has POLST: No PD ED PE NORMAL - Vitals Vital signs reviewed: Yes - General General: Alert and oriented X 3, No acute distress - HEENT HEENT: PERRL, EOMI - Neck Neck: Supple, no meningeal sign, No bony TTP - Cardiac Cardiac: RRR, No murmur - Respiratory Respiratory: No respiratory distress, Clear bilaterally - Abdomen Abdomen: Non tender - Back Back: No CVA TTP, No spinal TTP - Derm Derm: Normal color, Warm and dry - Extremities Extremities: Other (There is an obvious deformity of the mid to medial right clavicle: Clavicle consistent with fracture, also very mild tenderness of the superior scapula.) - Neuro Neuro: Alert and oriented X 3, Normal speech Results - Vitals Vitals: Vital Signs - 24 hr 03/08/20 16:04 Temperature 36.3 C L Heart Rate 62 Respiratory 17 Rate Blood Pressure 173/83 H O2 Saturation 100 Oxygen O2 Source Room air PD MEDICAL DECISION MAKING - ED course ED course: 69-year-old woman with an isolated right shoulder injury, fairly clear clavicular fracture on x-ray as well as by exam. Scapula also a bit tender but x-rays are negative. Case discussed by phone with Dr. Bartolo Gasca who reviewed the x-rays and felt like conservative care for the clavicle was appropriate. Departure - Departure Disposition: 01 Home, Self Care Clinical Impression: Right clavicle fracture Qualifiers: Encounter type: initial encounter Clavicle location: shaft Fracture type: closed Fracture alignment: displaced Qualified Code(s): S42.021A - Displaced fracture of shaft of right clavicle, initial encounter for closed fracture Condition: Good Record reviewed to determine appropriate education?: Yes Instructions: ED Fx Clavicle Follow-Up: [facility] [Provider Group] Prescriptions: HYDROcod/ACETAM 5/325 [Boligee 5/325] 1 - 2 tab PO Q6H PRN #15 tablet PRN Reason: Pain Comments: Follow-up with the orthopedics clinic within the week, call tomorrow for an appointment. Wear the sling as needed for comfort but you can remove it for sleeping or showering. Return if worsening. Do not drink or drive while taking narcotic pain medication. Note that many narcotic pain relievers also contain Tylenol/acetaminophen. Please ensure that your total dose of acetaminophen from all sources does not exceed 3 g (3000 mg) per day. You may get constipated while on this medication. Take a stool softener such as Colace twice a day while you are on it. Also add an zhel-rjy-tpuxohr laxative such as senna or MiraLAX on any day that you do not have a bowel movement. If you received a narcotic pain medication or sedative while in the emergency department, do not drive for the next 24 hours.
--- NOTE | 2020-03-08 16:35 | XRAY Report ---
PROCEDURE: Clavicle RT INDICATIONS: clavicle inj TECHNIQUE: 2 views of the clavicle were acquired. COMPARISON: None. FINDINGS: Bones: 2 views of the right clavicle demonstrate a comminuted fracture of the mid clavicle. Lung fiel ds are clear. Soft tissues: No suspicious soft tissue calcifications. IMPRESSION: Comminuted fracture of the right midclavicle. Reviewed by: Deion Fajardo on 03/08/2020 4:34 PM PST Approved by: Deion Fajardo on 03/08/2020 4:34 PM PST Station ID: [id number]
--- NOTE | 2020-03-08 16:41 | XRAY Report ---
PROCEDURE: Scapula 2 View RT INDICATIONS: scapula inj TECHNIQUE: 2 views of the scapula were acquired. COMPARISON: X-ray of the right clavicle from today FINDINGS: Bones: The right scapula is normal. There is a comminuted fracture of the right mid clavicle. Visuali zed ribs appear intact. Soft tissues: Overlying soft tissues appear normal. IMPRESSION: 1. Normal right scapula. 2. Comminuted fracture of the right mid clavicle. Reviewed by: Deion Fajardo on 03/08/2020 4:39 PM PST Approved by: Deion Fajardo on 03/08/2020 4:[address] [facility] Station ID: [id number]
[2020-03-08 17:23] VITALS: BP 188/81
== END 2020-03-08 17:23 | disposition home or self-care (01) ==
LOC: ED 15:57
DX: S42.021A Displaced fracture of shaft of right clavicle, initial encounter for closed fracture (principal); V80.010A Animal-rider injured by fall from or being thrown from horse in noncollision accident, initial encounter; Y93.52 Activity, horseback riding
CPT/HCPCS: 73000; 73010; 99283; 99284; A9270

== ENCOUNTER 2020-04-24 13:31 | Outpatient (CLI) | payer MEDICARE, BC ==
--- NOTE | 2020-04-24 11:30 | XRAY Report ---
PROCEDURE: Clavicle RT INDICATIONS: DISPLACED FX OF SHAFT OF R CLAVICLE TECHNIQUE: 2 views of the clavicle were acquired. COMPARISON: None. FINDINGS: Bones: Right clavicle shaft fracture with superior angulation of the proximal clavicle 1 shaft width. No bridging callus. Fracture appears comminuted on the prior exam. No widening of the AC joint. Mild degenerative change at the glenohumeral joint. No suspicious bony lesions. Soft tissues: No suspicious soft tissue calcifications. IMPRESSION: Similar alignment of the displaced right clavicle shaft fracture. Reviewed by: Miguel Arguelles MD on 04/24/2020 11:29 AM PST Approved by: Miguel Arguelles MD on 04/24/2020 11:29 AM PST Station ID: [id number]
== END 2020-04-24 23:59 | disposition home or self-care (01) ==
LOC: DI.N 13:31
PROVIDERS: ATTEND Orthopaedic Surgery
DX: S42.021A Displaced fracture of shaft of right clavicle, initial encounter for closed fracture (principal)

== ENCOUNTER 2020-11-07 09:38 | Outpatient (CLI) | payer MEDICARE, BC ==
[2020-11-07 10:05] LABS: BASOPHILS % (AUTO) 0.8 %; EOSINOPHILS # (AUTO) 0.3 10^3/uL (0.0-0.7); EOSINOPHILS % (AUTO) 6.3 %; HGB - HEMOGLOBIN 13.3 g/dL (12.0-16.0); LYMPHOCYTES # (AUTO) 1.2 10^3/uL (1.5-3.5); LYMPHOCYTES % (AUTO) 25.3 %; MEAN CORPUSCULAR HEMOGLOBIN 31.2 pg (27.0-31.0); MEAN CORPUSCULAR HGB CONC 31.7 g/dL (32.0-36.0); MEAN CORPUSCULAR VOLUME 98.6 fL (81.0-99.0); MEAN PLATELET VOLUME 9.6 fL (7.9-10.8); MONOCYTES # (AUTO) 0.4 10^3/uL (0.0-1.0); MONOCYTES % (AUTO) 8.2 %; NEUTROPHILS # (AUTO) 2.8 10^3/uL (1.5-6.6); NEUTROPHILS % (AUTO) 59.2 %; PLT - PLATELET COUNT 227 10^3/uL (130-450); RED BLOOD COUNT 4.26 10^6/uL (4.20-5.40); WHITE BLOOD COUNT 4.8 x10^3/uL (4.8-10.8)
[2020-11-07 10:18] LABS: ALBUMIN/GLOBULIN RATIO 1.3 (1.0-2.2); ALKALINE PHOSPHATASE 84 IU/L (42-121); ALT ALANINE AMINOTRANSFERASE 15 IU/L (10-60); AST ASPARTATE AMINOTRANSFERASE 23 IU/L (10-42); BILIRUBIN,TOTAL 0.9 mg/dL (0.2-1.0); BUN - BLOOD UREA NITROGEN 20 mg/dL (6-20); CALCIUM 9.2 mg/dL (8.5-10.3); CARBON DIOXIDE - CO2 30 mmol/L (21-32); CHLORIDE 104 mmol/L (101-111); CHOL/HDL RATIO 3.7 (<4.4); CHOLESTEROL 194 mg/dL; CREATININE 0.7 mg/dL (0.4-1.0); GFR - MDRD 82 (>89); GLUCOSE 93 mg/dL (70-100); HDL CHOLESTEROL 52 mg/dL; POTASSIUM 4.2 mmol/L (3.5-5.0); SODIUM 141 mmol/L (135-145); TOTAL PROTEIN 7.1 g/dL (6.7-8.2); TRIGLYCERIDES 30 mg/dL
== END 2020-11-07 09:39 | disposition home or self-care (01) ==
LOC: LAB 09:38
PROVIDERS: ATTEND Internal Medicine
DX: E78.5 Hyperlipidemia, unspecified (principal); R63.4 Abnormal weight loss
CPT/HCPCS: 36415; 80053; 80061; 83721; 85025

== ENCOUNTER 2020-11-15 08:59 | Outpatient (CLI) | payer MEDICARE, BC ==
--- NOTE | 2020-11-16 15:49 | Mammography Report ---
BILATERAL DIGITAL SCREENING MAMMOGRAM 3D/2D WITH EXAGGERATED CC: 11/15/2020 CLINICAL: Routine screening. Comparison is made to exams dated: 08/16/2016 mammogram, 05/17/2014 mammogram, 03/19/2013 mammogram, 1 mammogram, and 12/03/2010 mammogram - [facility]. The tissue of both melina sts is predominantly fatty. There is possible architectural distortion in the right breast middle depth lateral region seen on th e craniocaudal view only. No other significant masses, calcifications, or other findings are seen in either breast. IMPRESSION: INCOMPLETE: NEEDS ADDITIONAL IMAGING EVALUATION The possible architectural distortion in the right breast is indeterminate. Additional views with po ssible ultrasound are recommended. This exam was interpreted at Station ID: [id number]. NOTE: For mammograms, a report in lay terms will be sent to the patient. Approximately 15% of breast malignancies will not be visualized mammographically. In the management of a palpable breast mass, a negative mammogram must not discourage biopsy of a clinically suspicious lesion. Electronically Signed By: Chago Horne M.D. jr/:11/15/2020 10:11:16 ACR BI-RADS Category 0: Incomplete 3340F PARENCHYMAL PATTERN: (F) - The breast(s) demonstrate(s) diffuse fatty replacement. BI-RADS CATEGORY: (0) - 0 Mammo and US [id number] Immediate follow-up LATERALITY: (B)
== END 2020-11-15 09:00 | disposition home or self-care (01) ==
LOC: DI.S 08:59
PROVIDERS: ATTEND Internal Medicine
DX: Z12.31 Encounter for screening mammogram for malignant neoplasm of breast (principal); R92.8 Other abnormal and inconclusive findings on diagnostic imaging of breast

== ENCOUNTER 2020-11-21 10:11 | Outpatient (CLI) | payer MEDICARE, BC ==
--- NOTE | 2020-11-21 11:25 | DEXA Report ---
PROCEDURE: Dexa Spine and/or Hip INDICATIONS: POST MENOPAUSAL,OSTEOPENIA TECHNIQUE: Dual energy x-ray absorptiometry (DXA) was performed on a [employer]. Regions measur ed are the AP Spine, femoral neck, and if needed forearm. COMPARISON: 02/12/2018. FINDINGS: Lumbar Spine: Bone Mineral Density 1.129 g/cm/cm,T score -0.4, normal, and this represents a statistically signi ficant 5% reduction in bone mineral density from the comparison study in 2018. Left Hip: Bone Mineral Density 0.789 g/cm/cm,T score -1.7, osteopenia, and this represents a statistically ins ignificant reduction in bone mineral density of 4% Left Femoral Neck: Bone Mineral Density 0.793 g/cm/cm, T score -1.8, osteopenia (T score greater or equal to -1.0: NORMAL) (T score from -1.1 to -2.4: OSTEOPENIA) (T score less than or equal to -2.5 to: OSTEOPOROSIS) Impression: There is normal bone mineral density at the lumbosacral spine despite the statistically s ignificant 5% reduction in density from the comparison study in 2018. At the left hip on the left fem oral neck osteopenia is present. There was a statistically insignificant reduction in bone mineral de nsity at the left hip overall, of 4%. Patients with diagnosis of osteoporosis or osteopenia should have regular bone mineral density assess ment. For those eligible for Medicare, routine testing is allowed once every 2 years. Testing frequ ency can be increased for patients who have rapidly progressing disease or for those who are receivin g medical therapy to restore bone mass. Reviewed by: Rui Rosario MD on 11/21/2020 11:24 AM PDT Approved by: Rui Rosario MD on 11/21/2020 11:24 AM PDT Station ID: [id number]
== END 2020-11-21 10:12 | disposition home or self-care (01) ==
LOC: DI 10:11
PROVIDERS: ATTEND Internal Medicine
DX: M85.88 Other specified disorders of bone density and structure, other site (principal); Z78.0 Asymptomatic menopausal state

== ENCOUNTER 2020-12-01 08:55 | Outpatient (CLI) | payer MEDICARE, BC ==
--- NOTE | 2020-12-04 15:43 | Ultrasound Report ---
LIMITED ULTRASOUND OF RIGHT BREAST: 12/01/2020 CLINICAL: Short term follow up of the right breast. No prior exams were available for comparison. Real-time ultrasound of the right breast 9-12 o'clock region was performed. Guevara scale images of the real-time examination were reviewed. No significant abnormalities were seen sonographically in the right breast. IMPRESSION: PROBABLY BENIGN There is no abnormality seen in the right breast to correspond with the mammography finding in the up per outer quadrant which likely represents normal fibroglandular tissue. A follow-up right mammogram and an ultrasound in 6 months is recommended to demonstrate stability. Findings and recommendations were conveyed to the patient during today's evaluation. This exam was interpreted at Station ID: [id number]. Electronically Signed By: José Pinzon M.D. aty/:12/01/2020 11:20:05 Ultrasound BI-RADS: 3 Probably benign BI-RADS CATEGORY: (3) - 3 Mammo and US [id number] 6 month follow-up LATERALITY: (R)
--- NOTE | 2020-12-04 15:43 | Mammography Report ---
UNILATERAL RIGHT DIGITAL DIAGNOSTIC MAMMOGRAM 3D/2D: 12/01/2020 CLINICAL: Patient returns today to evaluate an asymmetry in the right breast. Comparison is made to exams dated: 11/15/2020 mammogram, 08/16/2016 mammogram, 05/17/2014 mammogram, mammogram, 02/04/2012 mammogram, and 12/03/2010 mammogram - [facility]. Th e tissue of right breast is heterogeneously dense. This may lower the sensitivity of mammography. Redemonstration of previously described possible irregular architectural distortion in the right melina st at 11 o'clock middle depth. This appears less prominent and likely represents overlapping dense f ibroglandular tissue. No other significant masses or calcifications are seen in the breast. IMPRESSION: INCOMPLETE: NEEDS ADDITIONAL IMAGING EVALUATION The possible irregular architectural distortion in the right breast most likely is fibroglandular tis rakesh and is indeterminate. An ultrasound is recommended for further evaluation and is scheduled to im mediately follow this examination. This exam was interpreted at Station ID: [id number]. NOTE: For mammograms, a report in lay terms will be sent to the patient. Approximately 15% of breast malignancies will not be visualized mammographically. In the management of a palpable breast mass, a negative mammogram must not discourage biopsy of a clinically suspicious lesion. Electronically Signed By: José Pinzon M.D. aty/:12/01/2020 11:17:54 ACR BI-RADS Category 0: Incomplete 3340F PARENCHYMAL PATTERN: (D) - The breast(s) demonstrate(s) heterogeneously dense fibroglandular rangel tavarez. BI-RADS CATEGORY: (0) - 0 Ultrasound [id number] Immediate follow-up LATERALITY: (R)
== END 2020-12-01 08:56 | disposition home or self-care (01) ==
LOC: DI 08:55
PROVIDERS: ATTEND Internal Medicine
DX: R92.8 Other abnormal and inconclusive findings on diagnostic imaging of breast (principal)

== ENCOUNTER 2021-03-02 11:13 | Outpatient (CLI) | payer MEDICARE, BC ==
[2021-03-02 15:05] LABS: HCT - HEMATOCRIT 43.6 % (37.0-47.0); MEAN CORPUSCULAR HGB CONC 32.1 g/dL (32.0-36.0); MEAN CORPUSCULAR VOLUME 99.5 fL (81.0-99.0); RED BLOOD COUNT 4.38 10^6/uL (4.20-5.40); RED CELL DISTRIBUTION WIDTH 11.9 % (12.0-15.0); WHITE BLOOD COUNT 7.3 x10^3/uL (4.8-10.8)
[2021-03-02 15:57] LABS: URIC ACID 3.5 mg/dL (2.6-7.2)
[2021-03-02 16:08] LABS: RHEUMATOID FACTOR NEGATIVE (Negative)
[2021-03-02 16:15] LABS: CRP - C-REACTIVE PROTEIN < 1.0 mg/dL (0-1.0)
[2021-03-05 09:32] LABS: ANA SCREEN NEGATIVE (NEGATIVE)
[2021-03-06 11:46] LABS: DNA (DS) ANTIBODY <1 IU/mL
[2021-03-06 21:56] LABS: CYCLIC CITRULL PEPTIDE CCP IGG 29 UNITS
== END 2021-03-02 11:14 | disposition home or self-care (01) ==
LOC: LAB.S 11:13
PROVIDERS: ATTEND Internal Medicine
DX: M25.50 Pain in unspecified joint (principal)
CPT/HCPCS: 36415; 84550; 85025; 85027; 85651; 86038; 86140; 86200; 86225; 86430

== ENCOUNTER 2023-11-06 13:35 | Outpatient (CLI) | payer MEDICARE, BC ==
--- NOTE | 2023-11-06 14:58 | Ultrasound Report ---
PROCEDURE: Extremity Soft Tissue Limited INDICATIONS: SWELLING R LEG TECHNIQUE: Real-time scanning was performed of the medial aspect of the right distal calf, with imag e documentation. COMPARISON: None. FINDINGS: There is no sonographic abnormality at the site of the palpable abnormality. Mild subcutaneous edema was present. A few superficial varicose veins were present. IMPRESSION: No sonographic evidence of an underlying mass lesion. Reviewed by: Maco Escalante MD on 11/06/2023 2:56 PM PDT Approved by: Maco Escalante MD on 11/06/2023 2:56 PM PDT Station ID: [id number]
== END 2023-11-06 13:36 | disposition home or self-care (01) ==
LOC: DI 13:35
PROVIDERS: ATTEND Internal Medicine
DX: R22.41 Localized swelling, mass and lump, right lower limb (principal)